=== PATIENT | male | born 1965 | race Caucasian/White ===

== ENCOUNTER 2023-06-30 06:23 | Day surgery (SDC) | payer BC ==
[2023-06-29] MEDS: Bupivacaine 0.5% 30 ML SDV INJECT ONE (08:02)
[2023-06-30] MEDS ORDERED: Ketorolac 30 MG/ML SDV IVPUSH ONE (06:24)
[2023-06-30] MEDS ORDERED: Midazolam 1 MG/ML 2 ML SDV IV ONE (06:24)
[2023-06-30] MEDS ORDERED: fentaNYL 100 MCG/2 ML SDV IV ONE (06:24)
[2023-06-30] MEDS: Sodium Chloride 0.9% 10 ML Syringe FLUSH PRN (06:48)
[2023-06-30] MEDS: Lactated Ringers 1,000 ML IV SCH (07:21)
[2023-06-30] MEDS: ceFAZolin 2 GM Vial IVPUSH ONE (07:25)
[2023-06-30] MEDS: Lidocaine 1% with EPINEPHrine 1:100,000 20 ML MDV INJECT ONE (08:02)
[2023-06-30] MEDS: Sodium Bicarbonate 8.4% 50 MEQ/50 ML Syringe ONE (08:02)
== END 2023-06-30 09:56 | disposition home or self-care (01) ==
LOC: FB.SDS 06:23
PROVIDERS: ATTEND Surgery
DX: D17.1 Benign lipomatous neoplasm of skin and subcutaneous tissue of trunk (principal); E78.2 Mixed hyperlipidemia; E66.9 Obesity, unspecified; Z68.36 Body mass index [BMI] 36.0-36.9, adult
CPT/HCPCS: 00300; 21931; 88304; J0665; J0690; J1885; J2250; J3010; J3490; J7120